=== PATIENT | male | born 1950 | race American Indian/Alaskan Native ===

== ENCOUNTER 2016-09-21 08:49 | Observation (INO) | payer MEDICARE, OTHER ==
[2016-09-21 09:03] VITALS: BMI 31.1
--- NOTE | 2016-09-21 09:04 | C.PDOC ---
History Of Present Illness 66M c/o left flank pain intermittent since yesterday. no exac or reliev fx. has not taken anything for pain. similar pain in the past w kidney stone. no psh. pmh dm. nkda. Time Seen by Provider: 09/21/16 09:02 Chief Complaint (Nursing): Male Genitourinary Past Medical History Vital Signs: Last Vital Signs Temp 98 F 09/21/16 23:39 Pulse 80 09/21/16 23:39 Resp 20 09/21/16 23:39 BP 120/75 09/21/16 23:39 Pulse Ox 96 09/21/16 23:39 - Medical History PMH: Diabetes, Kidney Stones Family History: States: Other Other Family History: nc - Social History Hx Tobacco Use: No Hx Alcohol Use: No Hx Substance Use: No - Immunization History Hx Tetanus Toxoid Vaccination: Yes Hx Influenza Vaccination: Yes Hx Pneumococcal Vaccination: Yes Review Of Systems Except As Marked, All Systems Reviewed And Found Negative. Constitutional: Negative for: Fever, Chills, Malaise Cardiovascular: Negative for: Chest Pain Respiratory: Negative for: Cough, Shortness of Breath Gastrointestinal: Positive for: Nausea. Negative for: Vomiting, Abdominal Pain , Diarrhea Genitourinary: Negative for: Dysuria, Frequency, Hematuria Neurological: Negative for: Weakness, Numbness Physical Exam - Physical Exam Appears: Well, Non-toxic, No Acute Distress Skin: Warm, Dry Head: Atraumatic Eye(s): bilateral: PERRL Nose: No Epistaxis Oral Mucosa: Moist Neck: Normal ROM Cardiovascular: Rhythm Regular Respiratory: No Decreased Breath Sounds, No Accessory Muscle Use, No Rales, No Rhonchi, No Wheezing Gastrointestinal/Abdominal: Soft, No Tenderness Back: No CVA Tenderness Neurological/Psych: Oriented x3, Other (no focal deficits) ED Course And Treatment - Laboratory Results Result Diagrams: 09/21/16 09:38 09/21/16 09:38 O2 Sat by Pulse Oximetry: 98 Medical Decision Making Medical Decision Making: maryam Fritz- will take to OR later today Disposition - Disposition Disposition: HOSPITALIZED Disposition Time: 11:03 Condition: STABLE - Clinical Impression Clinical Impression: Ureteral calculus
[2016-09-21] MEDS ORDERED: Sodium Chloride 0.9% 1,000 ML IV ONE ×2 (09:12→17:30)
[2016-09-21] MEDS ORDERED: Sodium Chloride 0.9% 1,000 ML ONE ×2 (09:22→12:17)
[2016-09-21 09:43] LABS: BASO # 0.1 K/uL (0.0-0.2); BASO % 0.5 % (0.0-2.0); EOS # 0.1 K/uL (0.0-0.7); EOS % 0.4 % (0.0-4.0); HEMATOCRIT 40.4 % (35.0-51.0); LYMPH # 1.8 K/uL (1.0-4.3); LYMPH % 14.6 % (20.0-40.0); MEAN CELL VOLUME 88.3 fL (80.0-94.0); MEAN CORPUSCULAR HEMOGLOBIN 29.7 pg (27.0-31.0); MEAN CORPUSCULAR HGB CONC 33.6 g/dL (33.0-37.0); MEAN PLATELET VOLUME 9.6 fL (7.2-11.7); MONO # 0.8 K/uL (0.0-0.8); MONO % 6.2 % (0.0-10.0); NRBC % 0.1 % (0.0-2.0); RED CELL DISTRIBUTION WIDTH 13.6 % (11.5-14.5); WHITE BLOOD COUNT 12.6 K/uL (4.8-10.8)
[2016-09-21 09:54] LABS: CHLORIDE 98 mmol/L (98-107)
[2016-09-21 09:55] LABS: POTASSIUM 3.7 mmol/L (3.6-5.2); SODIUM 137 mmol/L (132-148)
[2016-09-21 09:56] LABS: RBC URINE 191 /hpf (0-3); URINE BACTERIA RARE (<OCC); URINE BILIRUBIN NEGATIVE (NEGATIVE); URINE BLOOD 3+ (NEGATIVE); URINE COLOR Yellow (YELLOW); URINE GLUCOSE (UA) NORMAL (Normal); URINE KETONE TRACE mg/dL (NEGATIVE); URINE LEUKOCYTE ESTERASE NEG Leu/uL (Negative); URINE PROTEIN 1+ mg/dL (NEGATIVE); WBC URINE 5 /hpf (0-5)
[2016-09-21 09:57] LABS: GFR AFRICAN-AMERICAN > 60
[2016-09-21 09:58] LABS: ALB/GLOB RATIO 1.3 (1.0-2.1); ALKALINE PHOSPHATASE 64 U/L (38-126); ALT/SGPT 27 U/L (21-72); AST/SGOT 17 U/L (17-59); BILIRUBIN,TOTAL 1.4 mg/dL (0.2-1.3); BLOOD UREA NITROGEN 13 mg/dL (9-20); CARBON DIOXIDE 28 mmol/L (22-30); GLUCOSE,RANDOM 166 mg/dL (75-110); TOTAL PROTEIN 7.1 g/dL (6.3-8.3)
[2016-09-21 09:59] LABS: CALCIUM 8.8 mg/dl (8.6-10.4)
--- NOTE | 2016-09-21 10:08 | CT ---
PROCEDURE: CT Abdomen and Pelvis without intravenous contrast HISTORY: left flank pain hx of kidney stone COMPARISON: None. TECHNIQUE: Without contrast.. Contrast Dose: 0 Radiation dose: Total exam DLP = 1186.91 mGy-cm. This CT exam was performed using one or more of the following dose reduction techniques: Automated exposure control, adjustment of the mA and/or kV according to patient size, and/or use of iterative reconstruction technique. FINDINGS: LOWER THORAX: Unremarkable. LIVER: Unremarkable. No gross lesion or ductal dilatation. GALLBLADDER AND BILE DUCTS: Unremarkable. PANCREAS: Unremarkable. No gross lesion or ductal dilatation. SPLEEN: Unremarkable. ADRENALS: Unremarkable. No mass. KIDNEYS AND URETERS: Mild left hydroureteronephrosis. Obstructing 6 mm calculus in the mid to distal left ureter. No perinephric fluid. Bilateral nonobstructing renal calculi. 12 mm right lower pole nonobstructing renal calculus. Small right upper pole calculus and small left upper pole nonobstructing calculi. No renal mass. VASCULATURE: Unremarkable. No aortic aneurysm. BOWEL: Unremarkable. No obstruction. No gross mural thickening. APPENDIX: Unremarkable. Normal appendix. PERITONEUM: Unremarkable. No free fluid. No free air. LYMPH NODES: Unremarkable. No enlarged lymph nodes. BLADDER: Decompressed REPRODUCTIVE: Normal prostate BONES: No acute fracture. OTHER FINDINGS: None. IMPRESSION: Obstructing 12 mm mid to distal left ureteral calculus with mild left hydroureteronephrosis. Bilateral nonobstructing renal calculi. No other significant abnormality.
[2016-09-21] MEDS: Sodium Chloride 0.9% 1,000 ML IV SCH (12:14)
--- NOTE | 2016-09-21 13:49 | CP.PCM.PN ---
Subjective - Date & Time of Evaluation Date of Evaluation: 09/21/16 Time of Evaluation: 13:55 - Subjective Subjective: Medicine Note- Dr. Sullivan's service Patient was seen and examined at bedside. Patient has a hx of DM and previous episodes of kidney stones. Patient reports he has had flank pain for about 2 days, intermittent, can be a 10/10, lasting up to 6 hrs. Patient is currently in no acute distress. Patient will be going for procedure sometime later today with Dr. Fritz. Objective - Vital Signs/Intake and Output Vital Signs (last 24 hours): Temp Pulse Resp BP Pulse Ox 98.4 F 76 18 108/62 98 09/21/16 13:10 09/21/16 13:10 09/21/16 13:10 09/21/16 13:10 09/21/16 13:10 - Medications Medications: Current Medications Sodium Chloride (Sodium Chloride 0.9%) 1,000 mls @ 100 mls/hr IV .Q10H FELIX Last Admin: 09/21/16 12:14 Dose: 100 mls/hr - Constitutional Appears: Non-toxic, No Acute Distress - Eye Exam Pupil Exam: NORMAL ACCOMODATION - ENT Exam ENT Exam: Mucous Membranes Moist - Respiratory Exam Respiratory Exam: Clear to Ausculation Bilateral, NORMAL BREATHING PATTERN. absent: Prolonged Expiratory Phase, Rales, Rhonchi, Wheezes - Cardiovascular Exam Cardiovascular Exam: REGULAR RHYTHM, +S1, +S2 - GI/Abdominal Exam GI & Abdominal Exam: Soft, Normal Bowel Sounds. absent: Tenderness, Diminished Bowel Sounds, Hernia, Hypoactive Bowel Sounds - Extremities Exam Extremities Exam: Normal Capillary Refill - Neurological Exam Neurological Exam: Alert, Awake, Oriented x3 - Psychiatric Exam Psychiatric exam: Normal Affect, Normal Mood - Skin Skin Exam: Dry, Intact, Normal Color, Warm Assessment and Plan - Assessment and Plan (Free Text) Assessment: Hydroureteronephrosis Consult Uro- Dr. Fritz- taking to OR today for stenting, as per ER note. Abdomen/Pelvis w/o contrast- Obstructing 12mm mid to distal left ureteral calculus with mild left hydroureteronephrosis. Bilateral nonobstructing renal caluli. WBC 12.6 UA +3 blood, RBC 191 Diabetes Started on Home med: Metformin 1000mg PO BID. Will hold Glipizide 5mg PO BID for now. Accucheck RISS Will start Mod CHO diet after procedure Prophylactic Measure Contraindication for chemical anticoag- pre op and hemorrhage Protonix 40mg PO Daily
[2016-09-21] MEDS ORDERED: cefTRIAXone IV 1 gm in Dextros 50 ML IVPB ONE (16:26)
[2016-09-21] MEDS ORDERED: Lactated Ringer's 500 ML IV ONE (16:30)
[2016-09-21] MEDS ORDERED: Propofol 10 mg/ml Inj (20 ML) ONE ×3 (16:31→17:18)
[2016-09-21] MEDS ORDERED: Midazolam 2 MG/2 ML VIAL ONE ×2 (16:31→17:17)
[2016-09-21] MEDS ORDERED: Iohexol 240 (50 ml) ONE (16:42)
[2016-09-21] MEDS ORDERED: HYDROmorphone 0.5 mg/0.5 ml ISec IVP PRN (17:33)
[2016-09-21] MEDS ORDERED: Gentamicin 80 mg in 0.9% NS 80 MG/100 ML BAG IVPB ONE ×2 (18:00→18:02)
[2016-09-21] MEDS: Gentamicin 160 MG in Sodium Chloride 0.9% 100 ML IVPB SCH (18:03)
--- NOTE | 2016-09-21 18:10 | RAD ---
HISTORY: LT RENAL CALCULI COMPARISON: Comparison is made to the previous CT dated 09/21/2016 FINDINGS: BOWEL: Normal. No obstruction. No free air. BONES: Normal. OTHER FINDINGS: There are bilateral renal calculi larger on the right. The largest suspicious calculus measures approximately 13 millimeter. IMPRESSION: Bilateral renal calculi larger on the right.
--- NOTE | 2016-09-21 18:18 | RAD ---
PROCEDURE: Intraoperative Fluoroscopy. HISTORY: LT RENAL CALCULI FINDINGS: Fluoroscopic assistance was provided for cystoscopies/left retrograde.. Please refer to the operative report from
--- NOTE | 2016-09-21 21:07 | OP ---
PROCEDURE DATE: 09/21/2016 PREOPERATIVE DIAGNOSES: Urolithiasis and obstructive left distal ureteral stone, bilateral stone dis ease, left hydronephrosis, left flank pain. POSTOPERATIVE DIAGNOSES: Urolithiasis and obstructive left distal ureteral stone, bilateral stone di sease, left hydronephrosis, left flank pain, urethral stricture significantly. PROCEDURE: Cystoscopy, urethral dilation using filiforms and followers, cystoscopy, left retrograde pyelogram and attempted left stent insertion. We were not able to insert the stent. See the body of the report. COMPLICATIONS: There were no complications. BLOOD LOSS: Less than 10 mL. What we did notice is that there is some extravasation of urine outside the ureter and despite best a ttempts, see the body of the report, and aggressive long-term gentle attempt to insert a wire and a s tent, we could not get one in. At the termination of the procedure (see the body of the report further) I reinjected contrast and it goes past the extravasation, meaning it goes up to the kidney. Can see just a gentle instillation o f contrast just to confirm that there was continuity. Therefore, I decided to terminate the procedur e at this point and wait for some healing. note, before I started the procedure, he said, "am I going to be affecting his prostate." I white spect, when I talked to the patient further, he had some urethral voiding dysfunction with a decrease d force of stream and now actually I see that he has a urethral stricture. He did not voice much complaint. His biggest complaint was the bladder stones. INDICATIONS: See history and physical and consultation. A very pleasant gentleman. He has had a hi story of stones that he has passed by himself previously, apparently, although he does not have any s tone analysis, comes in now with a 6-mm stone in what they described as the distal ureter. After having looked at the films, it is above the UVJ now, between the iliac vessels and the UVJ. He also happens to have a stone on the right side. See the c 40a crew chief film today. On the retrograde, I could identify the stone very clearly on the right si de. The left side in the distal part is very difficult. It is a little bit cut off at the bottom, b ut after injecting contrast and did the entire procedure with fluoroscopic imaging, it is more obviou s where it is, just above the UVJ region. (This made it also somewhat difficult because there was no t much room to work with the distal ureteral orifice. See the body of the report.) PROCEDURE: After obtaining informed consent, the patient was placed on the table, routine monitors p laced, timeouts were called to confirm the patient and positioning. The patient has been given antib iotic prophylaxis. I gave Rocephin. (I am also going to give a dose of gentamicin after the fact.) The procedure continues with the cystoscope introduced via urethra and what we know right away is a s tricture. I took pictures of scar tissue. I could not get past this at all. I used filiforms, foll owers to gain access up to 18 Irish and once we did this, the remainder of the soft stricture, left than a cm in size in length. Once we did this, we introduced the cystoscope via the urethra, the rest of the way. We identified t he ureteral orifice and retrograde pyelogram was performed. Contrast goes up. You can see the films, it is actually a poor quality retrograde study. For some reason, the planetarium sky show technician is not quite availa ble so I am doing my own fluoroscopic imaging. We continue very gently, carefully, slowly. At this point, put a wire. Once we put the wire, the wire will not go past the stone. So we tried gently, carefully manipulating, but the wire still will not go, so we try an Angelina open- ended ureteral catheter and tried a gentle technique of wire and contrast it is still not going. We converted over to a torque catheter and it still will not go up. The wire actually goes beyond the wall. I could see this during the entire procedure with the camera and the fluoroscopic imaging. So now we tried gently, carefully. Once I saw the wire going there, first is was curling, but we cou ld see the wire beyond the wall. So I tried gently, carefully to try to readjust as carefully as we could, hoping that once we could g et the wire past, we would be able to then get a double-J stent and then just drain the kidney. After attempting for a very long time, we just could not do it. Just to confirm, I injected a little contrast through the open-ended ureteral catheter. I went back and forth, I tried the open-ended, t he torque catheter. I also tried the slippery [place] 0.25 wire, no matter what we did, we could not g et past the stone. It is fairly impacted and then again, the wire would just scott outside. So at this point, I injected some contrast. The final film we could see that there is contrast in th e ureter that was not there the stone before that, so there is definitely continuity. It is not a co mplete disruption. At this point, I inserted a Avalos catheter. I emptied the bladder, inserted a Avalos catheter via the urethra. We used a 12-Irish Avalos coude tip catheter, it drains well. The patient tolerated the procedure without complication. ADDENDUM: My plan is for possibly even discharge home if the patient will be okay on antibiotics wit h a Avalos catheter and he definitely needs to be dilated via urethra and I think the contrast, we nicolasa l go back and repeat further treatment for his stone to follow after just giving a few days to heal a nd perhaps under different situation, we will plan with a priority to have a cystoscope with a plan f or ureteroscopic treatment of the stone and get a wire in at that point. Just as a practical matter, I think that some of the underlying diabetes is causing some stricture an d scar tissue that is evident and this made things somewhat more challenging. At this point, the patient is in stable condition. He has a Avalos catheter draining the bladder well . This should keep the pressure down and if patient is doing well, we will even discharge home with a Avalos catheter, but if not, we are going to keep him in the hospital under close observation, treat with antibiotics and then further plans will follow. Efrem Fritz MD cc: [phone] TT: 09/21/2016 21:06:45 lissette
--- NOTE | 2016-09-21 21:45 | CON ---
DATE: 09/21/2016 REASON FOR CONSULTATION: Severe renal colic. The patient is a very pleasant 66-yearold gentleman who is here with severe renal colic. What he lucita d is that he has previously passed stones, but he feels like this one is not passing, it is about a 6 mm stone in the lower ureter in the left side. I have had a chance to review the CT scan. He also has bilateral stone disease. PAST MEDICAL AND SURGICAL HISTORY: He is a patient of Dr. Mack Brewster. He has underlying diabetes. No history of a RI or CVA. SOCIAL HISTORY: He is retired. He worked in a [employer] yard, driving trucks, disposed of wood. Other lopez, unremarkable. He has a family, children, grandchildren and great grandchildren. PHYSICAL REVIEW OF SYSTEMS: As above. No weight loss, chest pain, shortness of breath, just multipl e stones as mentioned. PHYSICAL EXAMINATION: GENERAL: Well-nourished male in no apparent distress. Currently, resting comfortably on the gurney, but he says he feels like the pain is coming back. LUNGS: Clear. HEART: Normal sinus rhythm. ABDOMEN: Overall soft. GENITALIA: Normal phallus without discharge. No testicular mass appreciated. RECTAL: Deferred. 30 gram prostate biopsy. LABORATORY DATA: See chart. DIAGNOSES: Urolithiasis, hematuria, and severe flank pain. We discussed options with the patient an d we are planning for an emergency cystoscopy and insertion of a stent and maybe even a stone basketi ng or laser depending on what we find clinically. PLAN: Antibiotic prophylaxis, the patient to the OR. I do want to mention one of the last things the patient asked me about is would this affect his urina tion because he feels like he has some voiding dysfunction. See the body of the operative report. It turns out he actually has a severe urethral stricture disea se to the point that I could not get in the scope and without dilating him. From the veru it was moderately visually occlusive, about 2-3 cm in length. You can see the operative report for further details. We attempted to put a stent and we were not able to get a stent in. So see the operative report and this is an addendum to my consult note. The plan will be as follows: We are going to discuss options with the patient, but I would recommend a repeat cystoscopy and a stent insertion. . Thank you for the urology consultation. Efrem Fritz MD cc: [phone] TT: 09/21/2016 21:44:47 Confirmation # [id number] Dictation # [id number]
[2016-09-21] MEDS: Acetaminophen-Codeine 300/30 mg Tab PO PRN (23:51)
[2016-09-22 07:55] LABS: CHLORIDE 102 mmol/L (98-107); SODIUM 136 mmol/L (132-148)
[2016-09-22 07:58] LABS: ALB/GLOB RATIO 1.2 (1.0-2.1); ALKALINE PHOSPHATASE 47 U/L (38-126); ALT/SGPT 27 U/L (21-72); AST/SGOT 21 U/L (17-59); BILIRUBIN,TOTAL 1.4 mg/dL (0.2-1.3); BLOOD UREA NITROGEN 14 mg/dL (9-20); CALCIUM 6.8 mg/dl (8.6-10.4); CARBON DIOXIDE 26 mmol/L (22-30); GFR AFRICAN-AMERICAN > 60; GLUCOSE,RANDOM 120 mg/dL (75-110); TOTAL PROTEIN 5.9 g/dL (6.3-8.3)
[2016-09-22 07:59] LABS: BASO % 0.3 % (0.0-2.0); EOS # 0.3 K/uL (0.0-0.7); EOS % 2.6 % (0.0-4.0); HEMATOCRIT 37.9 % (35.0-51.0); LYMPH # 2.1 K/uL (1.0-4.3); LYMPH % 22.2 % (20.0-40.0); MEAN CELL VOLUME 89.1 fL (80.0-94.0); MEAN CORPUSCULAR HEMOGLOBIN 30.3 pg (27.0-31.0); MEAN PLATELET VOLUME 10.1 fL (7.2-11.7); MONO # 0.8 K/uL (0.0-0.8); NRBC % 0.3 % (0.0-2.0); RED CELL DISTRIBUTION WIDTH 13.4 % (11.5-14.5); WHITE BLOOD COUNT 9.7 K/uL (4.8-10.8)
[2016-09-22] MEDS: Pantoprazole 40 mg EC Tab PO SCH (09:24)
[2016-09-22] MEDS: Sodium Chloride 0.9% 1,000 ML IV SCH (12:06)
[2016-09-22] MEDS: Acetaminophen-Codeine 300/30 mg Tab PO PRN (15:24)
[2016-09-22] MEDS: Gentamicin 160 MG in Sodium Chloride 0.9% 100 ML IVPB SCH (18:57)
--- NOTE | 2016-09-23 07:12 | PCM.URO ---
Urology Progress Note - Objective Lab Results Last 24 Hours: Laboratory Results - last 24 hr 09/22/16 09/22/16 09/22/16 07:11 07:11 11:49 WBC 9.7 RBC 4.25 L Hgb 12.9 Hct 37.9 MCV 89.1 MCH 30.3 MCHC 34.0 RDW 13.4 Plt Count 179 MPV 10.1 Neut % (Auto) 66.9 Lymph % (Auto) 22.2 [place] % (Auto) 8.0 Eos % (Auto) 2.6 Baso % (Auto) 0.3 Neut # 6.5 Lymph # 2.1 [place] # 0.8 Eos # 0.3 Baso # 0.0 Sodium 136 Potassium 4.0 Chloride 102 Carbon Dioxide 26 Anion Gap 13 BUN 14 Creatinine 1.3 Est GFR ( Amer) > 60 Est GFR (Non-Af Amer) 55 POC Glucose (mg/dL) 167 H Random Glucose 120 H Calcium 6.8 L Total Bilirubin 1.4 H AST 21 ALT 27 Alkaline Phosphatase 47 Total Protein 5.9 L Albumin 3.2 L Globulin 2.7 Albumin/Globulin Ratio 1.2 09/22/16 09/22/16 09/23/16 16:54 21:25 06:36 WBC RBC Hgb Hct MCV MCH MCHC RDW Plt Count MPV Neut % (Auto) Lymph % (Auto) [place] % (Auto) Eos % (Auto) Baso % (Auto) Neut # Lymph # [place] # Eos # Baso # Sodium Potassium Chloride Carbon Dioxide Anion Gap BUN Creatinine Est GFR ( Amer) Est GFR (Non-Af Amer) POC Glucose (mg/dL) 114 H 114 H 127 H Random Glucose Calcium Total Bilirubin AST ALT Alkaline Phosphatase Total Protein Albumin Globulin Albumin/Globulin Ratio Intake & Output: Intake & Output 09/22/16 09/23/16 09/23/16 18:59 06:59 18:59 Output Total 1000 Balance -1000 Output: Urine 1000 Urethral (Avalos) 1000 Vital Signs: Vital Signs - 24 hr 09/22/16 09/22/16 09/22/16 07:25 07:52 15:43 Temperature 98.3 F 98.1 F Pulse Rate 74 84 Respiratory 18 20 Rate Blood Pressure 130/68 120/80 O2 Sat by Pulse 97 98 96 Oximetry 09/23/16 01:04 Temperature 98.1 F Pulse Rate 89 Respiratory 18 Rate Blood Pressure 137/74 O2 Sat by Pulse 95 Oximetry
[2016-09-23 07:58] LABS: ALB/GLOB RATIO 1.1 (1.0-2.1); BILIRUBIN,TOTAL 1.5 mg/dL (0.2-1.3); TOTAL PROTEIN 6.7 g/dL (6.3-8.3)
[2016-09-23 07:59] LABS: CALCIUM 7.9 mg/dl (8.6-10.4)
[2016-09-23 08:01] LABS: BASO # 0.1 K/uL (0.0-0.2); BASO % 0.7 % (0.0-2.0); EOS # 0.3 K/uL (0.0-0.7); EOS % 3.4 % (0.0-4.0); HEMATOCRIT 40.1 % (35.0-51.0); LYMPH # 2.7 K/uL (1.0-4.3); LYMPH % 27.1 % (20.0-40.0); MEAN CELL VOLUME 89.1 fL (80.0-94.0); MEAN CORPUSCULAR HEMOGLOBIN 29.8 pg (27.0-31.0); MEAN CORPUSCULAR HGB CONC 33.4 g/dL (33.0-37.0); MEAN PLATELET VOLUME 9.6 fL (7.2-11.7); MONO # 0.8 K/uL (0.0-0.8); RED CELL DISTRIBUTION WIDTH 13.7 % (11.5-14.5); WHITE BLOOD COUNT 9.9 K/uL (4.8-10.8)
[2016-09-23] MEDS: Pantoprazole 40 mg EC Tab PO SCH (10:00)
[2016-09-23] MEDS ORDERED: Iohexol 240 (50 ml) ONE ×2 (12:33→14:30)
[2016-09-23] MEDS ORDERED: Lactated Ringer's 1,000 ML IV ONE (12:50)
[2016-09-23] MEDS ORDERED: Midazolam 2 MG/2 ML VIAL ONE (12:55)
[2016-09-23] MEDS ORDERED: Propofol 10 mg/ml Inj (20 ML) ONE (12:55)
[2016-09-23] MEDS: cefTRIAXone IV 1 gm in Dextros 50 ML IVPB ONE ×2 (13:00→13:05)
[2016-09-23] MEDS ORDERED: Lidocaine 2% Jelly (Uro-Jet) ONE (14:30)
--- NOTE | 2016-09-23 15:05 | RAD ---
HISTORY: HX LT RENAL STONE COMPARISON: 09/21/2016. FINDINGS: BOWEL: Normal. No obstruction. No free air. BONES: Normal. OTHER FINDINGS: Lower pole calculus right kidney 6 x 14 mm essentially unchanged compared to the prior study. Suboptimal visualization of adjacent calculi as well as bilateral upper pole calculi. IMPRESSION: No significant interval change compared to the prior examination(s).
--- NOTE | 2016-09-23 16:48 | RAD ---
PROCEDURE: Intraoperative Fluoroscopy. HISTORY: HX LT RENAL STONE FINDINGS: Fluoroscopic assistance was provided for retrograde study left renal College.. Please refer to the operative report from . Submitted images from the current procedure: 8.0 Less than 1 hr fluoroscopic time utilized during performance of the procedure.
[2016-09-23] MEDS: Gentamicin 160 MG in Sodium Chloride 0.9% 100 ML IVPB SCH (17:46)
--- NOTE | 2016-09-23 21:11 | OP ---
PROCEDURE DATE: 09/23/2016 Please see the previously dictated consult note from 09/21/2016 and also the previously dictated oper ative report from 09/21/2016. This is a second procedure for the patient. PREOPERATIVE DIAGNOSES: Bilateral urolithiasis, left hydronephrosis, left flank pain, urethral stric ture disease, hematuria, and underlying diabetes and urethral stricture disease. POSTOPERATIVE DIAGNOSES: Bilateral urolithiasis, left hydronephrosis, left flank pain, urethral stri cture disease, hematuria, and underlying diabetes and urethral stricture disease. Some kind of lower ureteral scar stricture tissue that we cannot bypass. TODAY'S PROCEDURE: Cystoscopy, removal of a Avalos catheter, left retrograde pyelogram, and attempted insertion of a left double-J stent but unable to do so. COMPLICATIONS: There were no complications. BLOOD LOSS: Less than 10 mL. INDICATIONS: See history and physical and the consultation and the progress note and the addendum to the end of this note. With the plan outlined. But basically, in brief, a very pleasant gentleman who came with he has history that he passed a ston e spontaneously. He does not have a stone analysis. Based on his initial competency evaluated nurse aide film besides a CT scan, which showed b ilateral stone disease and a 6 mm stone. The patient has on his competency evaluated nurse aide film a very calcified stone and we should be able to see the other stone therefore in a pretty clear fashion. What we do note is that the initial time, the patient did not major voiding complaints, but he had a severe urethral stricture that I could not even get passed without dilating. It was soft and easily dilated. The patient has some kind of to his genitourinary system. He is not aware that he passed any stones. But, I will mention that now on today's film before today's procedure we did a competency evaluated nurse aide film. The bladd er is full despite the fact the Avalos catheter is in place. The patient has no sensation of this. You can see the bladder and the tip of the Avalos catheter is in a bladder that is full and markedly e levated off the pubic bone. When I insert the catheter running through the cystoscope, a lot of urine comes out. Despite the fact that the Avalos is in place and it is in good place good location. But the patient does not have the sensation. I do want to mention the other finding that the urethra is more open before, but there is still sligh t fluffy scar tissue. I tried taking pictures on the way in. Hopefully, they captured. The other finding, I definitely took multiple pictures. Hopefully, they capture as well. The right ureteral orifice was perfectly normal. The left ureteral orifice was completely edematous. On the competency evaluated nurse aide film also looks like there may even still be a little leftover contrast from the other d ay that is not completely out of his system; it is a subtle finding. But that is aware when I injected today there is a little contrast still. We did not push the procedure further. See the body of the report, because when I injected contrast, it does go up past the obstruction. But even before any manipulation, there is already a little extravasation. This is a very concerning to me and I did not want to make anything worse (especially the patient is enthusiastic to go home and the plan is for discharge home and he has been stable). I am going to re commend and I discussed with him in clear detail, because it was difficult to explain all the expecta tions to the patient and our findings, but I nuria multiple pictures and extravasation and explained t o the patient in details. But I did not want him to need for percutaneous nephrostomy tube at this point, but at some point, he may. Because he may need to the kidney drained unless this heals. On today's film, I cannot see a stone, and so perhaps, he has passed a stone. The other possibility is secondary to gas or other issues why we are not seeing it well. The one in the right kidney we se e very well, but the distal ureter I am not seeing very well mid, proximal, anywhere within the left side. The obvious concern is if the patient has obstruction distal to where the extravasation is, it is not going to heal. I explained this to the patient if it is more proximal that may seal off by itself. It is very difficult to evaluate since I cannot know now where the stone is based on x-rays. (We may get a followup CT scan, although the patient made a comment about radiation exposure. At thi s point, if he is stable, see the addendum at the end of this note. At this point, I am going to dis charge him home after this procedure and then we will follow up.) DESCRIPTION OF PROCEDURE: After obtaining informed consent, the patient placed on table, routine mon itors placed, timeouts were called for the patient. We removed the old Avalos. I just want to mention that again for completeness purposes on the competency evaluated nurse aide f ilm you can see the right lower pole stone, it is calcified and it is very clearly seen. I do not se e anything equivalent on the left side. Of note, on the films, the Avalos catheter is in place; in fa ct, it is very high up. The bladder is full. The tip of the catheter is pretty high up. We subsequently will empty that out, but it is definitely in place properly. Also of note, subtle point, it may be some urine contrast still left over from Saturday; this is now 2 days later, not quite even 48 hours, from Saturday night and Saturday morning. But what I do not see is a 6 mm stone in the distal ureter. Cystoscope via the urethra, we removed the old Avalos catheter and emptied out the bladder. Took multiple pictures. At this point, we introduced the cystoscope via the urethra. We note that where we did the dilation with filiform and followers, there is still fluffy tissue, but he is more open; I am able to get the 22 scope in much more easily. I identified both ureteral orif ices. I take multiple pictures of the left and the right side. The right side is perfectly normal. The left side is fairly edematous still. Therefore, with that in mind, I start with an open-ended catheter just to the orifice where I think t he orifice is located and that is where it is in fact and then we gently, gently push the wire. That is just the most distal not even quite a centimeter into the orifice. Once I do this and the wi re does not advance, I do all that with fluoro just to make sure that I am in the orifice. I then in ject contrast and already some of that contrast goes straight up past the extravasation, but some is already extravasated. This is concerning. I do not see an outline of a stone in that area. I just see still some of the c ontrast going and this is before the wire. So I try now gently to advance with the wire and I can see that it goes a little more proximal, but t hen that is it. We tried very gently, carefully to see if we can make any little bit of progress. What we do is, bec ause it is so distal, but we do have enough space. I keep the wire in place gently, very carefully a nd we put the ureteral dilator to put a second wire gently. I try negotiating and navigating by putt ing a second wire in, but no matter what we do, I cannot get a second wire or the first wire, either one, pass this area and get it to go straight up to the kidney. I took multiple pictures with imaging and fluoroscopic imaging, etc., but we just cannot make any pro steff. I did not want to do more damage. At this point, we terminated the procedure. We emptied the bladder. The patient tolerated procedure without complication. ADDENDUM: So basically the findings at this point, the patient came in with stone disease with hydro on the left side. At this point, he is not having no symptoms. He does not want the Avalos, so we are leaving the Avalos out, although I think it would be better for a lower pressure system, but he says he is able to urin ate. The patient has some kind of underlying scar issues that are relevant and he has underlying maggy betes that we know about and he has some kind of impaired system where he is not feeling well. But he remains stable. The plan will be for outpatient followup closely. Because if we cannot, it i s possible with time that as long as there is no distal obstruction, it is possible that it will heal better, but I am very worried about urethral stricture disease and subsequently having hydronephrosi s on the kidney. I explained this to the patient before the procedure, I explained this on Saturday as well, and I am going to explain it again, but he may need a nephrostomy tube, but he may be able to get away with just a stent, but at some point, I definitely need to put a stent in and leave that dalton ne a while and make sure that heals. We will discuss all this further. At this point, if he remains stable, I am going to have the patient discharged home with outpatient trice jimenez. Efrem Fritz MD cc: [phone] TT: 09/23/2016 21:11:20 mn
[2016-09-24 06:36] LABS: POTASSIUM 4.2 mmol/L (3.6-5.2)
[2016-09-24 06:38] LABS: BILIRUBIN,TOTAL 1.1 mg/dL (0.2-1.3); TOTAL PROTEIN 5.9 g/dL (6.3-8.3)
[2016-09-24 06:39] LABS: CALCIUM 8.1 mg/dl (8.6-10.4)
[2016-09-24 06:55] LABS: BASO % 0.4 % (0.0-2.0); EOS # 0.4 K/uL (0.0-0.7); EOS % 4.1 % (0.0-4.0); HEMATOCRIT 35.5 % (35.0-51.0); LYMPH % 22.3 % (20.0-40.0); MEAN CELL VOLUME 88.5 fL (80.0-94.0); MEAN CORPUSCULAR HEMOGLOBIN 30.1 pg (27.0-31.0); MEAN PLATELET VOLUME 9.8 fL (7.2-11.7); MONO # 0.8 K/uL (0.0-0.8); MONO % 8.4 % (0.0-10.0); RED CELL DISTRIBUTION WIDTH 13.1 % (11.5-14.5)
[2016-09-24] MEDS: Pantoprazole 40 mg EC Tab PO SCH (09:44)
[2016-09-24] MEDS: Sodium Chloride 0.9% 1,000 ML IV SCH ×2 (09:45→17:00)
[2016-09-24 13:55] VITALS: RESP 20
[2016-09-24] MEDS: Cefepime IV 1 gm in Dextrose 1 GM/50 ML BAG IVPB SCH (17:00)
[2016-09-25] MEDS: Cefepime IV 1 gm in Dextrose 1 GM/50 ML BAG IVPB SCH (05:00)
[2016-09-25 06:35] LABS: BASO % 0.5 % (0.0-2.0); EOS # 0.3 K/uL (0.0-0.7); EOS % 4.4 % (0.0-4.0); HEMATOCRIT 34.7 % (35.0-51.0); LYMPH % 27.5 % (20.0-40.0); MEAN CELL VOLUME 87.9 fL (80.0-94.0); MEAN CORPUSCULAR HEMOGLOBIN 30.4 pg (27.0-31.0); MEAN CORPUSCULAR HGB CONC 34.6 g/dL (33.0-37.0); MEAN PLATELET VOLUME 10.1 fL (7.2-11.7); MONO # 0.6 K/uL (0.0-0.8); MONO % 7.5 % (0.0-10.0); RED CELL DISTRIBUTION WIDTH 13.7 % (11.5-14.5); WHITE BLOOD COUNT 7.3 K/uL (4.8-10.8)
[2016-09-25 06:54] LABS: POTASSIUM 3.9 mmol/L (3.6-5.2)
[2016-09-25 06:56] LABS: TOTAL PROTEIN 6.1 g/dL (6.3-8.3)
[2016-09-25 06:57] LABS: CALCIUM 8.2 mg/dl (8.6-10.4)
--- NOTE | 2016-09-25 07:29 | PN ---
DATE: 09/24/2016 The patient is getting supportive care. Rising creatinine level. Will discontinue the gentamicin. fluids, monitor BUN and creatinine. As per the urologist for intervention. Krystle Brewster MD cc: [id number] TT: 09/24/2016 15:29:15 Confirmation # [id number] Dictation # [id number]
[2016-09-25] MEDS: Pantoprazole 40 mg EC Tab PO SCH (09:47)
--- NOTE | 2016-09-25 09:52 | US ---
PROCEDURE: Ultrasound of the Kidneys HISTORY: Elevated creatinine. COMPARISON: None available. TECHNIQUE: Sonogram of the kidneys. FINDINGS: RIGHT KIDNEY: Measures: 4.9 x 10.8 cm. Upper pole calculus 5 x 6 mm. Midpole calculus 6 x 12 mm. No solid mass lesion or hydronephrosis visualized. LEFT KIDNEY: Measures: 5.9 x 11.5 cm. Normal in size, contour and echogenicity. 7 mm upper pole calculus nonobstructing. Incidental finding(s): Multiple (2) simple cyst 7 mm in diameter and 2.4 x 2.7 cm. OTHER FINDINGS: None. IMPRESSION: Bilateral nonobstructing calculi.
--- NOTE | 2016-09-25 11:04 | CP.PCM.PN ---
Subjective - Date & Time of Evaluation Date of Evaluation: 09/25/16 Time of Evaluation: 09:15 - Subjective Subjective: PGY2 Medicine Note - Dr. uSllivan's service: Patient seen and examined at bedside this AM. Patient reports feeling like someone is poking his flank with a stick every once a while. Otherwise, patient is urinating normally and does not have pain or blood with urination. Patient denies fever, chills, chest pain, SOB. Objective - Vital Signs/Intake and Output Vital Signs (last 24 hours): Temp Pulse Resp BP Pulse Ox 98.2 F 67 20 120/65 98 09/25/16 07:00 09/25/16 07:00 09/25/16 07:00 09/25/16 07:00 09/25/16 07:00 Intake and Output: 09/25/16 09/25/16 06:59 18:59 Intake Total 1140 Output Total 500 800 Balance -500 340 - Medications Medications: Current Medications Acetaminophen/Codeine Phosphate (Tylenol/Codeine 300 Mg/30 Mg) 1 ea PO Q6 PRN PRN Reason: Bladder Spasm Last Admin: 09/22/16 15:24 Dose: 1 ea Cefepime HCl (Maxipime Iv 1 Gm Premix) 1 gm in 50 mls @ 100 mls/hr IVPB Q12H [facility] Last Admin: 09/25/16 05:00 Dose: 100 mls/hr Metformin HCl (Glucophage) 1,000 mg PO BIDBS [facility] Last Admin: 09/25/16 08:32 Dose: 1,000 mg Pantoprazole Sodium (Protonix Ec Tab) 40 mg PO DAILY [facility] Last Admin: 09/25/16 09:47 Dose: 40 mg - Labs Labs: 09/25/16 06:17 09/25/16 06:17 - Constitutional Appears: Non-toxic, No Acute Distress - Head Exam Head Exam: NORMAL INSPECTION - Eye Exam Eye Exam: EOMI - ENT Exam ENT Exam: Mucous Membranes Moist - Respiratory Exam Respiratory Exam: Clear to Ausculation Bilateral, NORMAL BREATHING PATTERN. absent: Rales, Rhonchi, Wheezes - Cardiovascular Exam Cardiovascular Exam: REGULAR RHYTHM, +S1, +S2 - GI/Abdominal Exam GI & Abdominal Exam: Soft, Normal Bowel Sounds. absent: Tenderness - Extremities Exam Extremities Exam: absent: Pedal Edema - Back Exam Back Exam: absent: CVA tenderness (L), CVA tenderness (R) - Neurological Exam Neurological Exam: Alert, Normal Gait, Oriented x3 - Psychiatric Exam Psychiatric exam: Normal Affect, Normal Mood - Skin Skin Exam: Normal Color, Warm Assessment and Plan - Assessment and Plan (Free Text) Assessment: Nephrolithiasis Urology consult - Dr. Patrick Fritz - help appreciated 2 failed attempts at ureteral stents Plan was for percutaneous nephrostomy. Patient is not sure if he wants to do it and wants to follow up outpatient. Awaiting reply from Dr. Fritz UTI Cefepime 1gm IVPB Q12H (started 09/24) Urology consult - Dr. Fritz - ara appreciated Uretheral stricture Urology consult - Dr. Fritz - ara appreciated Avalos placed 09/21 under anesthesia. Avalos removed 09/23. Patient urinating well DM Metformin 100mg PO BIDBS Sugars well controlled Prophylaxis Protonix 40mg PO daily No chemical VTE anticoagulation secondary to hematuria SCDs
--- NOTE | 2016-09-25 15:04 | PCM.URO ---
Urology Progress Note - Objective Lab Results Last 24 Hours: Laboratory Results - last 24 hr 09/24/16 09/25/16 09/25/16 21:27 06:17 06:17 WBC 7.3 RBC 3.95 L Hgb 12.0 Hct 34.7 L MCV 87.9 MCH 30.4 MCHC 34.6 RDW 13.7 Plt Count 180 MPV 10.1 Neut % (Auto) 60.1 Lymph % (Auto) 27.5 Phillips % (Auto) 7.5 Eos % (Auto) 4.4 H Baso % (Auto) 0.5 Neut # 4.4 Lymph # 2.0 Phillips # 0.6 Eos # 0.3 Baso # 0.0 Sodium 138 Potassium 3.9 Chloride 104 Carbon Dioxide 26 Anion Gap 13 BUN 13 Creatinine 1.6 H Est GFR ( Amer) 52 Est GFR (Non-Af Amer) 43 POC Glucose (mg/dL) 143 H Random Glucose 129 H Calcium 8.2 L Total Bilirubin 1.0 AST 21 ALT 20 L Alkaline Phosphatase 51 Total Protein 6.1 L Albumin 3.1 L Globulin 3.0 Albumin/Globulin Ratio 1.0 09/25/16 07:00 WBC RBC Hgb Hct MCV MCH MCHC RDW Plt Count MPV Neut % (Auto) Lymph % (Auto) Phillips % (Auto) Eos % (Auto) Baso % (Auto) Neut # Lymph # Phillips # Eos # Baso # Sodium Potassium Chloride Carbon Dioxide Anion Gap BUN Creatinine Est GFR ( Amer) Est GFR (Non-Af Amer) POC Glucose (mg/dL) 155 H Random Glucose Calcium Total Bilirubin AST ALT Alkaline Phosphatase Total Protein Albumin Globulin Albumin/Globulin Ratio Intake & Output: Intake & Output 09/24/16 09/25/16 09/25/16 18:59 06:59 18:59 Intake Total 1140 Output Total 500 800 Balance -500 340 Intake: Intake, IV Amount 600 Left Antecubital 600 Oral 540 Output: Urine 500 800 Urine, Voided 500 800 Vital Signs: Vital Signs - 24 hr 09/24/16 09/25/16 23:45 07:00 Temperature 98.2 F 98.2 F Pulse Rate 69 67 Respiratory 20 20 Rate Blood Pressure 114/63 120/65 O2 Sat by Pulse 96 98 Oximetry
[2016-09-25 17:27] VITALS: BP 120/68; PULSE 60; TEMP 98.4; O2SAT 97
--- NOTE | 2016-09-26 17:23 | CARD ---
APPROVED REPORT EKG Measurement Heart [id number] IN [id number] <Conclusion> Normal sinus rhythm Nonspecific T wave abnormality Abnormal ECG
== END 2016-09-25 18:45 | disposition home or self-care (01) ==
LOC: C.ER 08:49 → EDBD 08:49 → C.9E 11:04 → C.5T 12:44 → OBSVTOIN 09-24 19:05 → INTOOBSV 09-24 19:05 → C.3T 09-25 11:37
PROVIDERS: ADMIT Internal Medicine Pulmonary Disease; ATTEND Internal Medicine Pulmonary Disease
PROC: 0T7D8ZZ Dilation of Urethra, Via Natural or Artificial Opening Endoscopic (ICD-10-PCS; principal; 2016-09-21 10:30)
PROC: 0TPB80Z Removal of Drainage Device from Bladder, Via Natural or Artificial Opening Endoscopic (ICD-10-PCS; 2016-09-23)
PROC: BT1FZZZ Fluoroscopy of Left Kidney, Ureter and Bladder (ICD-10-PCS; 2016-09-23)
DX: N13.2 Hydronephrosis with renal and ureteral calculous obstruction (principal); E11.69 Type 2 diabetes mellitus with other specified complication; N35.8 Other urethral stricture; R31.9 Hematuria, unspecified; Z79.84 Long term (current) use of oral hypoglycemic drugs; Z87.442 Personal history of urinary calculi
CPT/HCPCS: 36415; 52281; 74000; 74020; 74176; 76770; 80053; 81001; 82948; 85025; 87086; 93005; 96361; 96365; 96366; 96367; 96375; 99285; C1758; C1769; C1887; G0378; J0692; J0696; J1580; J1885; J7040; J7120; Q9966

== ENCOUNTER 2018-08-20 15:59 | Emergency (ER) | payer MEDICARE ==
[2018-08-20 15:59] VITALS: BMI 31.1
--- NOTE | 2018-08-20 17:36 | C.PDOC ---
History Of Present Illness 68 y/o male,w/PMhx of kidney stones, presents to the ER complaining of right sided flank pain which began when he woke up in the morning today. Patient states that the pain radiates to the RLQ and and the scrotal area. Patient reports that he has mild nausea. He states that the pain similar to his history of kidney stones in the past. However, he notes that he had pain in the left flank about 1 year ago. Denies having fever,chills, vomiting, dysuria, hematuria, dark and bloody urine. Time Seen by Provider: 08/20/18 16:54 Chief Complaint (Nursing): Male Genitourinary History Per: Patient History/Exam Limitations: no limitations Onset/Duration Of Symptoms: Hrs Current Symptoms Are (Timing): Still Present Severity: Moderate Associated Symptoms: Nausea. denies: Fever, Chills, Vomiting, Urinary Symptoms Past Medical History Reviewed: Historical Data, Nursing Documentation, Vital Signs Vital Signs: Last Vital Signs Temp 99 F 08/20/18 16:19 Pulse 82 08/20/18 16:19 Resp 18 08/20/18 16:19 BP 138/83 08/20/18 16:19 Pulse Ox 99 08/20/18 16:19 - Medical History PMH: Diabetes, Kidney Stones, Chronic Kidney Disease Other Surgeries: Hx of surgeries - [facility] Procedures DILATION OF URETHRA, ENDO (09/24/16) FLUOROSCOPY OF LEFT KIDNEY, URETER AND BLADDER (09/24/16) REMOVAL OF DRAINAGE DEVICE FROM BLADDER, ENDO (09/24/16) Family History: States: No Known Family Hx - Social History Hx Tobacco Use: No Hx Alcohol Use: No Hx Substance Use: No - Immunization History Hx Tetanus Toxoid Vaccination: Yes Hx Influenza Vaccination: Yes Hx Pneumococcal Vaccination: Yes Review Of Systems Constitutional: Negative for: Fever, Chills Gastrointestinal: Positive for: Abdominal Pain (Rt groin), Other (flank pain). Negative for: Vomiting Genitourinary: Positive for: Scrotal Pain. Negative for: Dysuria, Frequency, Hematuria Physical Exam - Physical Exam Appears: Non-toxic, No Acute Distress Skin: Normal Color, Warm, Dry Head: Atraumatic, Normacephalic Eye(s): bilateral: Normal Inspection Nose: Normal Oral Mucosa: Moist Neck: Supple Chest: Symmetrical Cardiovascular: Rhythm Regular Respiratory: Normal Breath Sounds, No Rales, No Rhonchi, No Wheezing Gastrointestinal/Abdominal: Normal Exam, Soft, No Tenderness, No Guarding, No Rebound Back: CVA Tenderness (mild right sided CVA tenderness) Neurological/Psych: Oriented x3, Normal Speech ED Course And Treatment - Laboratory Results Result Diagrams: 08/20/18 18:07 08/20/18 18:07 Lab Interpretation: No Acute Changes O2 Sat by Pulse Oximetry: 99 (RA) Pulse Ox Interpretation: Normal - CT Scan/US CT abdomen and pelvis without contrast Other Rad Studies (CT/US): Read By Radiologist, Radiology Report Reviewed CT/US Interpretation: Accession No. : [id number]. Patient Name / ID : MARY MARINO / [id number]. Exam Date : 08/20/2018 17:27:44 ( Approved ). Study Comment : Sex / Age : M / 68Y. Creator : Ruth Reveles. Dictator : Debbie Garcia MD. Chiropractic Care : Macroeconomics Professor : Debbie Garcia MD. Approver2 : Report Date : 08/20/2018 17:35:50. My Comment : . Date of service: 08/20/2018. PROCEDURE: CT Abdomen and Pelvis without intravenous contrast. HISTORY: Abdominal pain. COMPARISON: 09/21/2016. TECHNIQUE: CT scan of the abdomen and pelvis was performed without ad ministration of intravenous contrast. Oral contrast was not administered. Coronal and sagittal reformatted images were obtained. Radiation dose: Total exam DLP = 1285.62 mGy-cm. This CT exam was performed using one or more of the following dose reduction techniques: Automated exposure control, adjustment of the mA and/or kV according to patient size, and/or use of iterative reconstruction technique. FINDINGS: LOWER THORAX: The visualized lungs are clear. LIVER: Normal in size. No gross lesion or ductal dilatation. GALLBLADDER AND BILE DUCTS: Well distended. No calcified gallstones. No common bile duct dilatation. PANCREAS: Normal in size. No gross lesion or ductal dilatation. SPLEEN: Normal in size. ADRENALS: Normal in size. No discrete nodule. KIDNEYS AND URETERS: There is a 5 mm obstructing stone in the right proximal ureteral with mild right hydronephrosis, dilatation of the proximal ureteral, edema and enlargement of the right kidney and significant perinephric inflammatory changes. There is a 4 mm nonobstructing stone in the right interpolar region and 12 mm nonobstructing stone in the right lower pole. The left kidney is normal in size. There are punctate nonobstructing stones in the left kidney. VASCULATURE: Normal in caliber. No aortic aneurysm. There are early aortic atherosclerotic calcifications present. BOWEL: Evaluation of the bowel is limited in the absence of oral contrast. The small bowel loops are normal in caliber. There is left colonic diverticulosis without CT evidence for acute diverticulitis. No bowel dilatation or wall thickening. No bowel obstruction. APPENDIX: Normal appendix. PERITONEUM: No free fluid. No free air. LYMPH NODES: No enlarged lymph nodes. BLADDER: Well distended and normal in appearance. REPRODUCTIVE: The prostate gland is normal in size. BONES: No acute fracture. There is severe degenerative disc disease at L5-S1. OTHER FINDINGS: There are bilateral small fat containing inguinal hernias. IMPRESSION: 1. Mild right region of the right kidney. Obstructive uropathy with a 5 mm stone in the proximal ureter, proximal hydroureteronephrosis and perinephric inflammatory changes. 2. 12 mm nonobstructing stone in the lower pole and 4 mm nonobstructing stone in the interpolar region of the right kidney. 3. Punctate nonobstructing stones in the left kidney. 4. Left colonic diverticulosis without CT evidence for acute diverticulitis. Reevaluation Time: 18:51 Reassessment Condition: Improved Medical Decision Making Medical Decision Making: Plan: --Labs --UA --Toradol IV --CT-Abd & Pelv. Disposition - Disposition Referrals: Gil Fritz MD [Staff Provider] - Disposition: HOME/ ROUTINE Disposition Time: 18:51 Condition: IMPROVED Prescriptions: Ketorolac Tromethamine [Toradol] 10 mg PO QID PRN #20 tab PRN Reason: Pain, Severe (8-10) Tamsulosin [Flomax] 0.4 mg PO DAILY #30 cap Instructions: Renal Colic Forms: [facility] (Mauritanian) - Clinical Impression Clinical Impression: Renal colic on right side - Scribe Statement The provider has reviewed the documentation as recorded by the Scribe Russ Alejandra Provider Attestation: All medical record entries made by the Scribe were at my direction and personally dictated by me. I have reviewed the chart and agree that the record accurately reflects my personal performance of the history, physical exam, medical decision making, and the department course for this patient. I have also personally directed, reviewed, and agree with the discharge instructions and disposition.
--- NOTE | 2018-08-20 18:02 | CT ---
Date of service: 08/20/2018 PROCEDURE: CT Abdomen and Pelvis without intravenous contrast HISTORY: Abdominal pain COMPARISON: 09/21/2016 TECHNIQUE: CT scan of the abdomen and pelvis was performed without administration of intravenous contrast. Oral contrast was not administered. Coronal and sagittal reformatted images were obtained. Radiation dose: Total exam DLP = 1285.62 mGy-cm. This CT exam was performed using one or more of the following dose reduction techniques: Automated exposure control, adjustment of the mA and/or kV according to patient size, and/or use of iterative reconstruction technique. FINDINGS: LOWER THORAX: The visualized lungs are clear. LIVER: Normal in size. No gross lesion or ductal dilatation. GALLBLADDER AND BILE DUCTS: Well distended. No calcified gallstones. No common bile duct dilatation. PANCREAS: Normal in size. No gross lesion or ductal dilatation. SPLEEN: Normal in size. ADRENALS: Normal in size. No discrete nodule. KIDNEYS AND URETERS: There is a 5 mm obstructing stone in the right proximal ureteral with mild right hydronephrosis, dilatation of the proximal ureteral, edema and enlargement of the right kidney and significant perinephric inflammatory changes. There is a 4 mm nonobstructing stone in the right interpolar region and 12 mm nonobstructing stone in the right lower pole. The left kidney is normal in size. There are punctate nonobstructing stones in the left kidney. VASCULATURE: Normal in caliber. No aortic aneurysm. There are early aortic atherosclerotic calcifications present. BOWEL: Evaluation of the bowel is limited in the absence of oral contrast. The small bowel loops are normal in caliber. There is left colonic diverticulosis without CT evidence for acute diverticulitis. No bowel dilatation or wall thickening. No bowel obstruction. APPENDIX: Normal appendix. PERITONEUM: No free fluid. No free air. LYMPH NODES: No enlarged lymph nodes. BLADDER: Well distended and normal in appearance. REPRODUCTIVE: The prostate gland is normal in size. BONES: No acute fracture. There is severe degenerative disc disease at L5-S1. OTHER FINDINGS: There are bilateral small fat containing inguinal hernias. IMPRESSION: 1. Mild right region of the right kidney. Obstructive uropathy with a 5 mm stone in the proximal ureter, proximal hydroureteronephrosis and perinephric inflammatory changes. 2. 12 mm nonobstructing stone in the lower pole and 4 mm nonobstructing stone in the interpolar region of the right kidney. 3. Punctate nonobstructing stones in the left kidney. 4. Left colonic diverticulosis without CT evidence for acute diverticulitis.
[2018-08-20 18:13] LABS: BASO # 0.1 K/uL (0.0-0.2); BASO % 0.5 % (0.0-2.0); EOS # 0.1 K/uL (0.0-0.7); EOS % 0.5 % (0.0-4.0); HEMOGLOBIN 13.5 g/dL (12.0-18.0); LYMPH # 1.6 K/uL (1.0-4.3); LYMPH % 14.3 % (20.0-40.0); MEAN CORPUSCULAR HGB CONC 32.9 g/dL (33.0-37.0); MEAN PLATELET VOLUME 9.5 fL (7.2-11.7); MONO # 0.6 K/uL (0.0-0.8); MONO % 5.2 % (0.0-10.0); NEUT # 8.9 K/uL (1.8-7.0); NEUT % 79.5 % (50.0-75.0); RBC 4.51 Mil/uL (4.40-5.90); RED CELL DISTRIBUTION WIDTH 13.9 % (11.5-14.5); WHITE BLOOD COUNT 11.2 K/uL (4.8-10.8)
[2018-08-20 18:24] LABS: MEAN CELL VOLUME 91.2 fL (80.0-94.0)
[2018-08-20 18:32] LABS: ALB/GLOB RATIO 1.4 (1.0-2.1); ALBUMIN 4.2 g/dL (3.5-5.0); ALT/SGPT 19 U/L (21-72); AST/SGOT 20 U/L (17-59); BLOOD UREA NITROGEN 14 mg/dL (9-20); CALCIUM 9.5 mg/dl (8.6-10.4); GFR NON-AFRICAN AMERICAN 60
[2018-08-20 19:07] LABS: SQUAMOUS EPITHIAL 1 /hpf (0-5); URINE BACTERIA OCC (<OCC); URINE BILIRUBIN NEGATIVE (NEGATIVE); URINE BLOOD 3+ (NEGATIVE); URINE CLARITY Hazy (Clear); URINE COLOR Yellow (YELLOW); URINE GLUCOSE (UA) NORMAL (Normal); URINE LEUKOCYTE ESTERASE NEG Leu/uL (Negative); URINE PROTEIN NEGATIVE (NEGATIVE); URINE UROBILINOGEN NORMAL mg/dL (0.2-1.0)
[2018-08-20 19:23] VITALS: BP 114/70; PULSE 72; RESP 20; TEMP 99.3; O2SAT 98
== END 2018-08-20 19:23 | disposition home or self-care (01) ==
LOC: C.ER 15:59
DX: N13.2 Hydronephrosis with renal and ureteral calculous obstruction (principal); Z87.442 Personal history of urinary calculi
CPT/HCPCS: 74176; 80053; 81001; 85025; 96374; 99284; J1885